=== PATIENT | female | born 1995 | race Caucasian/White ===

== ENCOUNTER 2017-08-15 11:06 | Emergency (ER) | payer OTHER, BC, MEDICAID ==
[2017-08-15 11:17] VITALS: RESP 24; TEMP 96.8
[2017-08-15] MEDS ORDERED: OXYCODONE/APAP 5/325 TAB PO ONE (11:34)
--- NOTE | 2017-08-15 11:35 | EDPHY ---
H & P Smoking Status: Current every day smoker Time Seen by Provider: 08/15/17 11:29 HPI/ROS: CHIEF COMPLAINT: Right ankle pain HISTORY OF PRESENT ILLNESS: 21-year-old female arrives via private vehicle complaining of acute right lateral ankle pain after she was walking on ice, slipped and inverted her foot. She felt a snap. She is unable to bear weight. Denies paresthesia. Denies sensory or motor deficit. No foot injury. No fall from height. Occurred shortly prior to arrival. Reproducible pain with range of motion or palpation. PHYSICAL EXAM (Prior to examination, patient consented to physical exam, hands were washed and my usual and customary physical exam procedures followed) 1) GENERAL: Well-developed, well-nourished, alert and oriented. Appears to be in no acute distress. 2) HEAD: Normocephalic 3) HEENT: Pupils equal, round, reactive to light bilaterally. 4) LUNGS: Breathing comfortably. 5) MUSCULOSKELETAL: Soft tissue swelling to the lateral malleolus. Intact skin. proximal tibia and fibula nontender .5th MT nontender negative Villalobos test, compartments soft 6) SKIN: Intact no tenting 7) VASCULAR: DP,PT pulses and cap refill present and brisk DIFFERENTIAL DIAGNOSIS: in no particular order including but not limited to fracture, sprain, compartment syndrome Procedure: Crutches indications for crutch use discussed with patient. Patient fitted for crutches by ER staff. Observed ambulating with crutches. I think the patient has the capacity to safely use crutches. Usual and customary crutch walking precautions provided Procedure: Splint A [place] boot splint was applied by ER csr technician. After application of the splint I returned and re-examined the patient. The splint was adequately immobilizing the joint and distal to the splint the patient's circulation and sensation were intact. Patient shows no signs of compartment syndrome. Was given orthopedic precautions. (Pricilla Szymanski) Constitutional: Initial Vital Signs Temperature (C) 36 C 08/15/17 11:15 Heart Rate 98 08/15/17 11:15 Respiratory Rate 24 H 08/15/17 11:15 Blood Pressure 123/97 H 08/15/17 11:15 O2 Sat (%) 93 08/15/17 11:15 O2 Delivery Mode Room Air Allergies/Adverse Reactions: azithromycin Allergy (Verified 02/21/16 19:52) Penicillins Allergy (Verified 02/21/16 19:52) Home Medications: Medication Instructions Recorded Albuterol 08/15/17 oxyCODONE/APAP 5/325 [Percocet 1 tab PO Q6 #14 tab 08/15/17 5/325] MDM/Departure - MDM Imaging Results: Images reviewed myself (Pricilla Szymanski) Procedures: 12:40 p.m. Procedure: Fracture-Dislocation reduction Indication: Fracture dislocation of the right ankle Indications risks benefits of procedure discussed with patient. Using traction and counter traction the dislocation and fracture were reduced, splinted with a 3 way Ortho Glass splint by myself in the ER technicians. Post splint placement patient's neurovascular status remains intact per baseline with brisk capillary refill. Compartments soft. Will obtain post reduction x-ray (Pricilla Szymanski) Medications Given: Discontinued Medications Ketorolac Tromethamine (Toradol) 60 mg IM EDNOW ONE Stop: 08/15/17 11:41 Last Admin: 08/15/17 11:50 Dose: 60 mg Lorazepam (Ativan Injection) 1 mg IM EDNOW ONE Stop: 08/15/17 11:41 Last Admin: 08/15/17 11:52 Dose: 1 mg ED Course/Re-evaluation: Care of patient under supervision of secondary supervising physician Dr Hamlet Phan with whom I discussed case. The consultation with on-call orthopedics Dr. Gama Bonilla at 1:31 p.m. who recommends follow-up August 18 this is a long holiday weekend. Patient has been re-evaluated with serial examinations , she remains neurovascular intact. We had a lengthy discussion about the importance of orthopedic precautions, compartment syndrome precautions. She will be discharged home with analgesia, elevation, strict orthopedic precautions instructions. (Pricilla Szymanski) I did not see this patient while she was in the emergency department. However her care was discussed with the PA while the patient was in the department. I agree with treatment plan and management. I am the secondary supervising physician (Hamlet Phan) - Depart Disposition: Home, Routine, Self-Care Clinical Impression: Right trimalleolar fracture dislocation Condition: Fair Instructions: Ankle Fracture (ED) Additional Instructions: Return to the ER immediately if you experience discoloration, have worsening pain, numbness, tingling, or any other symptoms that concern you. If you received x-rays in the emergency department today, be advised, that ligamentous , tendon, muscular, and other non-bony injury cannot be fully ruled out. Try to keep your affected extremity elevated above the level of your chest, and keep cold packs on the affected area, for the next 48 hours. Prescriptions: oxyCODONE/APAP 5/325 [Percocet 5/325] 1 tab PO Q6 #14 tab Referrals: Gama Bonilla MD [Medical Doctor] - 08/18/17
[2017-08-15] MEDS ORDERED: LORazepam 2 MG/ML INJ IM ONE (11:40)
[2017-08-15] MEDS ORDERED: KETOROLAC 30 MG/1 ML SDV IM ONE (11:40)
[2017-08-15 13:48] VITALS: BP 144/85; PULSE 108; O2SAT 97
== END 2017-08-15 13:48 | disposition home or self-care (01) ==
PROC: 0QSGXZZ Reposition Right Tibia, External Approach (ICD-10-PCS; principal; 2017-08-15)
DX: S82.851A Displaced trimalleolar fracture of right lower leg, initial encounter for closed fracture (principal); F17.200 Nicotine dependence, unspecified, uncomplicated; W00.0XXA Fall on same level due to ice and snow, initial encounter; Y99.8 Other external cause status; Y93.01 Activity, walking, marching and hiking
CPT/HCPCS: J1885; J2060